=== PATIENT | female | born 1940 | race Caucasian/White ===

== ENCOUNTER 2018-04-24 06:53 | Emergency (ER) | payer OTHER ==
[~2018-04-24] VITALS: Ht 149.9 cm; Wt 60.3 kg
[~2018-04-24 06:53] MED LIST: ATENOLOL25 MG; COZAAR100 MG; NEURONTIN600 MG; SYNTHROID100 MCG; SYNTHROID112 MCG
[2018-04-24] MEDS ORDERED: AVAPRO300 MG (07:12)
== END 2018-04-24 11:52 | disposition home or self-care (01) ==
LOC: ER 06:53
DX: K29.40 Chronic atrophic gastritis without bleeding (principal)